=== PATIENT | female | born 1995 | race Caucasian/White ===

== ENCOUNTER 2018-06-27 08:36 | Emergency (ER) | payer BC ==
--- NOTE | 2018-06-27 08:56 | ED ---
Skin Complaint - HPI Summary HPI Summary: Pt. is a 23 y.o female who presents to the ER for possible pilonidal abscess. Pt. stats she had pilonidal cyst surgically removed in March. Pt. is a student at and is from [place]. Pt. states since the surgery she has noticed a small bump that has progressively gotten bigger. Pt. states that area seems to be draining. She has an apt. with local sx for next Monday. Pt. went to urgent care 2 days ago and was started on Bactrim. Pt. presents today because she began having chills and nausea. She also notes intermittent painful bump to left axilla. She denies past medical hx. Symptoms are mild-moderate in severity. Sitting makes symptoms worse. Standing makes symptoms better. - History of Current Complaint Chief Complaint: EDRashSkinAbscess Time Seen by Provider: 06/27/18 08:52 Stated Complaint: SKIN INFECTION Hx Obtained From: Patient Pain Intensity: 8 - Allergy/Home Medications Allergies/Adverse Reactions: Allergies Allergy/AdvReac Type Severity Reaction Status Date / Time Cephalosporins Allergy Hives Verified 06/27/18 08:48 Penicillins Allergy Hives Verified 06/27/18 08:48 Home Medications: Home Medications Norethindrone-E.estradiol-Iron [Microgestin 24 Fe 1 mg-20 Mcg] 1 tab PO DAILY [History Confirmed 06/27/18] Sulfamethox/Trimethoprim DS* [Bactrim DS 800/160 TAB*] 1 tab PO DAILY 06/27/18 [ History Confirmed 06/27/18] PMH/Surg Hx/FS Hx/Imm Hx Previously Healthy: Yes Infectious Disease History: No Infectious Disease History: Denies: Traveled Outside the [place] in Last 30 Days - Family History Known Family History: Positive: Other - Noncontributory - Social History Occupation: Student Lives: Dormitory/Roommates Review of Systems Positive: Chills. Negative: Fever Positive: Nausea. Negative: Abdominal Pain, Vomiting Positive: Other - buttocks abscess All Other Systems Reviewed And Are Negative: Yes Physical Exam Triage Information Reviewed: Yes Vital Signs On Initial Exam: Initial Vitals Temp Pulse Resp BP Pulse Ox 97.4 F 105 16 132/83 94 06/27/18 08:42 06/27/18 08:42 06/27/18 08:42 06/27/18 08:42 06/27/18 08:42 Vital Signs Reviewed: Yes Appearance: Positive: Well-Appearing - Pt. lying in bed in NAD. Skin: Positive: Warm, Dry, Other - Healed incision scar noted to the mid gluteal cleft region. Adjacently to the right there is a a roughly 2cm of erythema with induration. No drainage. No surrounding cellulitis. Does not extend to perineum or rectum. Head/Face: Positive: Normal Head/Face Inspection Eyes: Positive: Normal, EOMI Neck: Positive: Supple Neurological: Positive: Normal, CN Intact II-III Psychiatric: Positive: Affect/Mood Appropriate Procedures - Incision and Drainage Right Buttocks Anesthesia: Digital, Lidocaine Instrument(s): Scalpel, Other - Small amount of bloody purulent matter expressed. Loculations broken up. Wound packed with 1/4 inch packing. Packing: Gauze Diagnostics - Vital Signs Vital Signs Temp Pulse Resp BP Pulse Ox 06/27/18 08:42 97.4 F 105 16 132/83 94 - Laboratory Result Diagrams: 06/27/18 09:31 06/27/18 09:31 Lab Statement: Any lab studies that have been ordered have been reviewed, and results considered in the medical decision making process. Course/Dx - Course Course Of Treatment: Pt. presenting to the ER for possible gluteal abscess. She is afebrile and well appearing. Based labs ordered. Will check u/s to evaluate for fluid colleciton. No involvement of perineal or rectal region. U/S reading per radiology: IMPRESSION: COMPLEX FLUID COLLECTION IN THE AREA OF CLINICAL ABNORMALITY MEASURING UP TO. 4.3 CM IN SIZE. THE DIFFERENTIAL INCLUDES ABSCESS. I and D was performed to affected area and packed. Will have pt. contine bactrim. Wound culture obtained. Packing removal/change in 48 hours. Pt. has a scheduled apt. with sx on Monday. To apply warm compresses. Tylenol or motrin for pain as directed. To return to ER for increases pain, swelling, redness, fever, vomiting, or if concerned. Pt understands and agrees with plan. - Differential Diagnoses - Skin Complaint Differential Diagnoses: Abscess, Cellulitis - Diagnoses Provider Diagnoses: Abscess Discharge - Sign-Out/Discharge Documenting (check all that apply): Patient Departure - Discharge Plan Condition: Good Disposition: HOME Prescriptions: Ondansetron TAB* [Zofran 4 MG Tab*] 4 mg PO Q6H PRN #12 tab PRN Reason: Nausea Patient Education Materials: Abscess (ED), Abscess Follow-up (ED) Referrals: Nikos Ritchie MD [Medical Doctor] - No Primary Care Phys,NOPCP [Primary Care Provider] - Additional Instructions: Follow up with surgery as scheduled for on Monday Packing removal/change in 48 hours Keep wound clean and dry Continue bactrim as directed Apply warm compresses up to 3-4 times a day Tylenol or Motrin for pain as directed Return to ER for increased pain, swelling, redness, fever or if concerned - Billing Disposition and Condition Condition: GOOD Disposition: Home
[2018-06-27 09:51] LABS: ABS Basophils 0 10^3/ul (0-0.2); ABS Eosinophils 0.1 10^3/ul (0-0.6); ABS Lymphocytes 1.6 10^3/ul (1.0-4.8); ABS Monocytes 0.6 10^3/ul (0-0.8); ABS Neutrophils 5.7 10^3/ul (1.5-7.7); ABS Nucleated RBC 0 10^3/ul; Eosinophil % 0.7 % (0-6); Hematocrit 37 % (35-47); Hemoglobin 12.4 g/dl (12.0-16.0); Lymphocyte % 19.9 % (25-47); Mean Corpuscular HGB Conc 34 g/dl (31-36); Mean Corpuscular Hemoglobin 27 pg (27-31); Mean Corpuscular Volume 79 fL (80-97); Mean Platelet Volume 9.2 um3 (7.4-10.4); Nucleated Red Blood Cells % 0.1; Platelet Count 295 10^3/ul (150-450); Red Blood Count 4.67 10^6/ul (4.00-5.40); Red Cell Distribution Width 14 % (10.5-15); White Blood Count 7.9 10^3/ul (3.5-10.8)
[2018-06-27 10:05] LABS: EGFR Non-African American 82.2 (>60)
--- NOTE | 2018-06-27 10:06 | RAD ---
HISTORY: R/O abscess COMPARISONS: None. TECHNIQUE: Multiple transverse and longitudinal ultrasound images were obtained of the area of clinical abnormality using grayscale and color Doppler imaging. FINDINGS: Along the left gluteal cleft, there is a circumscribed heterogeneously hypoechoic fluid collection measuring 4.3 x 1.1 x 2.3 cm in size. IMPRESSION: COMPLEX FLUID COLLECTION IN THE AREA OF CLINICAL ABNORMALITY MEASURING UP TO 4.3 CM IN SIZE. THE DIFFERENTIAL INCLUDES ABSCESS.
[2018-06-27] MEDS ORDERED: Lidocaine 1%* 5 ML VIAL INJ ONE (10:24)
[2018-06-27 11:34] VITALS: BP 108/64
== END 2018-06-27 12:35 | disposition home or self-care (01) ==
LOC: ED 08:36
DX: L02.31 Cutaneous abscess of buttock (principal); R11.0 Nausea
CPT/HCPCS: 10060; 36415; 76705; 80048; 85025; 86140; 87070; 87205; 96374; 99282

== ENCOUNTER → 2018-06-29 08:16 | Emergency (ER) | payer BC ==
[~2018-06-29 08:16] MED LIST: Iohexol 300* (CONTRAST) 10 ML SDV IV ONE; Ketorolac INJ* 30 MG/ML 1 ML VIAL IV PUSH ONE; Ondansetron INJ* 2 MG/ML VIAL IV ONE
--- NOTE | 2018-06-29 08:28 | ED ---
Skin Complaint - HPI Summary HPI Summary: Patient is a 23-year-old female who presents emergency department for wound evaluation and packing change. Patient was seen in the ER 2 days ago by myself and had an abscess to her right gluteal region incised and drained and packed. She has been taking Bactrim. Patient states that she is still having difficulty getting pain to buttocks and has been unable to sit secondary to pain. Symptoms nausea which she contributes of antibiotics. She denies vomiting, fever, chills. Symptoms are moderate in severity. - History of Current Complaint Chief Complaint: EDGeneral Time Seen by Provider: 06/29/18 08:27 Stated Complaint: NEEDS WOUND REPACKING Hx Obtained From: Patient Pain Intensity: 4 - Allergy/Home Medications Allergies/Adverse Reactions: Allergies Allergy/AdvReac Type Severity Reaction Status Date / Time Cephalosporins Allergy Hives Verified 06/29/18 08:24 Penicillins Allergy Hives Verified 06/29/18 08:24 PMH/Surg Hx/FS Hx/Imm Hx Previously Healthy: Yes Infectious Disease History: No Infectious Disease History: Denies: Traveled Outside the [place] in Last 30 Days - Family History Known Family History: Positive: Other - Noncontributory - Social History Occupation: Student Lives: Dormitory/Roommates Alcohol Use: Occasionally Substance Use Type: Reports: None Smoking Status (MU): Never Smoked Tobacco Review of Systems Constitutional: Negative Negative: Fever, Chills Positive: Nausea. Negative: Abdominal Pain, Vomiting Positive: Other - buttocks abscess All Other Systems Reviewed And Are Negative: Yes Physical Exam Triage Information Reviewed: Yes Vital Signs On Initial Exam: Initial Vitals Temp Pulse Resp BP Pulse Ox 97.7 F 88 18 121/70 97 06/29/18 08:22 06/29/18 08:22 06/29/18 08:22 06/29/18 08:22 06/29/18 08:22 Vital Signs Reviewed: Yes Appearance: Positive: Well-Appearing - Pt. lying in bed in NAD. Skin: Positive: Warm, Dry, Other - Packing in place to right upper gleatal cleft. No drainage. Improved over localized erythema since last exam. Area is very tender but no fluctuance or induration or erythema. Head/Face: Positive: Normal Head/Face Inspection Eyes: Positive: Normal, EOMI Neurological: Positive: Normal, CN Intact II-III Psychiatric: Positive: Affect/Mood Appropriate Procedures - Procedure Summary Procedure Summary: Packing removed from gluteal cleft wound and wound was repacked. Sterile dressing placed. Diagnostics - Vital Signs Vital Signs Temp Pulse Resp BP Pulse Ox 06/29/18 08:22 97.7 F 88 18 121/70 97 - Laboratory Result Diagrams: 06/29/18 08:47 06/29/18 08:47 Lab Statement: Any lab studies that have been ordered have been reviewed, and results considered in the medical decision making process. Course/Dx - Course Course Of Treatment: Presenting for wound check. She is afebrile.. Concerned that patient is still having significant pain with sitting. Concerned that abscess may be deeper and that was drained 2 days ago. Case discussed with Dr. Jackson. We'll obtain CT pelvis and repeat blood work for further evaluation. IV Toradol ordered for pain. CT pelvis per radiology: IMPRESSION: THERE IS FOCAL SOFT TISSUE THICKENING ADJACENT TO THE RIGHT GLUTEAL CLEFT IN THE. SUBCUTANEOUS SOFT TISSUES MEASURING UP TO 2.3 CM IN SIZE. THIS APPEARS TO CORRESPOND TO. THE BUTTOCK ABSCESS NOTED ON PREVIOUS SONOGRAPHY, THOUGH CURRENTLY THERE IS NO LOCULATED. FLUID COLLECTION . THERE IS NO DEEP EXTENSION. THERE IS NO PERIRECTAL OR ISCHIOANAL. INFLAMMATORY CHANGE. Blood work shows a normal WBC and improving CRP level. Wound was repacked. Will have pt. continue bactrim and f.u with sx on Monday as schedule. Will rx a few days of lortab to help with pt.'s pain. MANAGER LANGUAGE reviewed and no red flags noted. Advised warm compresses at least 3x a day. To return to ER over the weekend for increased pain, redness, fever, or if concerned. Pt. understands and agrees with plan. - Differential Diagnoses - Skin Complaint Differential Diagnoses: Abscess, Cellulitis - Diagnoses Provider Diagnoses: Wound abscess Discharge - Sign-Out/Discharge Documenting (check all that apply): Patient Departure - Discharge Plan Condition: Good Disposition: HOME Prescriptions: Hydrocodone/Acetaminophen [Hydrocodone-Acetamin 5-325 mg] 1 each PO Q6H #9 tablet MDD 4tablets Patient Education Materials: Abscess (ED) Forms: *School Release Referrals: Kaushik Padilla MD [Medical Doctor] - No Primary Care Phys,NOPCP [Primary Care Provider] - Additional Instructions: Follow up with the surgical clinic on Monday as scheduled Continue antibiotic as directed Pain medication as directed Apply warm compresses at least 3 x a day Return to ER for increased pain, fever, swelling, redness - Billing Disposition and Condition Condition: GOOD Disposition: Home
[2018-06-29 09:00] LABS: ABS Basophils 0 10^3/ul (0-0.2); ABS Eosinophils 0.1 10^3/ul (0-0.6); ABS Lymphocytes 1.9 10^3/ul (1.0-4.8); ABS Monocytes 0.5 10^3/ul (0-0.8); ABS Neutrophils 3.7 10^3/ul (1.5-7.7); ABS Nucleated RBC 0 10^3/ul; Eosinophil % 1.4 % (0-6); Hematocrit 37 % (35-47); Hemoglobin 12.4 g/dl (12.0-16.0); Lymphocyte % 31.2 % (25-47); Mean Corpuscular HGB Conc 34 g/dl (31-36); Mean Corpuscular Hemoglobin 27 pg (27-31); Mean Corpuscular Volume 79 fL (80-97); Mean Platelet Volume 8.9 um3 (7.4-10.4); Nucleated Red Blood Cells % 0.1; Platelet Count 270 10^3/ul (150-450); Red Blood Count 4.67 10^6/ul (4.00-5.40); Red Cell Distribution Width 14 % (10.5-15); White Blood Count 6.2 10^3/ul (3.5-10.8)
--- NOTE | 2018-06-29 10:48 | RAD ---
CLINICAL HISTORY: perirectal abscess COMPARISON: Ultrasound dated June 27, 2018 TECHNIQUE: Multiple contiguous axial CT scans were obtained of the pelvis after the administration of intravenous contrast. Coronal and sagittal multiplanar reformations are submitted for review. FINDINGS: SMALL BOWEL AND MESENTERY: The small bowel is normal in contour, course, and caliber. There is no obstruction or dilatation. COLON: The colon is normal in contour, course, caliber. There is no pericolonic inflammatory change. There is no perirectal inflammatory change. BLADDER: The bladder is smooth in contour. PELVIC ORGANS: The uterus and adnexa are grossly normal for technique. AORTA: The iliac and proximal femoral arteries are unremarkable. IVC: Unremarkable LYMPH NODES: There is no lymphadenopathy by size criteria. ABDOMINAL WALL: There is no evidence for abdominal wall hernia. BONES AND SOFT TISSUES: The patient is status post lumpectomy and spinal fusion. There is focal soft tissue thickening adjacent to the right gluteal cleft is seen on axial image 34 and coronal image 94 measuring approximately 2.3 x 0.5 x 1.3 cm in size. There is no appreciable loculated fluid collection. This corresponds to the finding noted on previous sonography. OTHER: None IMPRESSION: THERE IS FOCAL SOFT TISSUE THICKENING ADJACENT TO THE RIGHT GLUTEAL CLEFT IN THE SUBCUTANEOUS SOFT TISSUES MEASURING UP TO 2.3 CM IN SIZE. THIS APPEARS TO CORRESPOND TO THE BUTTOCK ABSCESS NOTED ON PREVIOUS SONOGRAPHY, THOUGH CURRENTLY THERE IS NO LOCULATED FLUID COLLECTION . THERE IS NO DEEP EXTENSION. THERE IS NO PERIRECTAL OR ISCHIOANAL INFLAMMATORY CHANGE.
[2018-06-29 11:52] VITALS: BP 118/61
== END | disposition home or self-care (01) ==
LOC: ED 08:16
DX: L02.31 Cutaneous abscess of buttock (principal); R11.0 Nausea; Z88.1 Allergy status to other antibiotic agents; Z88.0 Allergy status to penicillin
CPT/HCPCS: 36415; 72193; 80048; 84702; 85025; 86140; 96374; 96375; 99282; J1885; J2405; Q9967